=== PATIENT | male | born 1980 ===

== ENCOUNTER 2017-03-03 10:47 | Emergency (ER) | payer OTHER ==
[2017-03-03 11:03] VITALS: TEMP 98.2
--- NOTE | 2017-03-03 12:48 | C.PDOC ---
History Of Present Illness 36 y/o male presents to the ED for evaluation of neck and upper back pain for the last 2 days. 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 Notes his neck feels stiff. Pt also complaints of left foot 5th toe pain after dropping a block on it. Otherwise, denies any sensory changes , fever, chills, or any other associated symptoms at this time. Time Seen by Provider: 03/03/17 11:23 Chief Complaint (Nursing): Back Pain History Per: Patient History/Exam Limitations: no limitations Onset/Duration Of Symptoms: Days (2) Current Symptoms Are (Timing): Still Present Quality Of Discomfort: "Pain" Previous Symptoms: Neck Pain Associated Symptoms: None. denies: Incontinence, New Weakness, New Numbness Exacerbating Factor(s): Movement Recent travel outside of the [place]: No Additional History Per: Patient Past Medical History Reviewed: Historical Data, Nursing Documentation, Vital Signs Vital Signs: Last Vital Signs Temp 98.2 F 03/03/17 11:02 Pulse 64 03/03/17 13:02 Resp 15 03/03/17 13:02 BP 125/82 03/03/17 13:02 Pulse Ox 100 03/03/17 13:02 - Medical History PMH: No Chronic Diseases Family History: States: Unknown Family Hx - Social History Hx Alcohol Use: Yes Hx Substance Use: No Review Of Systems Except As Marked, All Systems Reviewed And Found Negative. Constitutional: Negative for: Fever, Chills Musculoskeletal: Positive for: Neck Pain, Back Pain (upper), Foot Pain (left) Neurological: Negative for: Weakness, Numbness Physical Exam - Physical Exam Appears: Non-toxic, No Acute Distress Skin: Normal Color, Warm, Dry Head: Atraumatic, Normacephalic Eye(s): bilateral: Normal Inspection Neck: Decreased ROM (decreased ROM with flexion to left side), No Midline Cervical Tenderness, Paracervical Tenderness ((+) spasm on left side) Chest: Symmetrical Cardiovascular: Rhythm Regular Respiratory: Normal Breath Sounds, No Wheezing Extremity: Normal ROM (FROM of left foot), Tenderness (mild tenderness to distal aspect of 4th and 5th digits of left foot), Capillary Refill (< 2 sec.), No Deformity, No Swelling Pulses: Left Dorsalis Pedis: Normal, Right Dorsalis Pedis: Normal Neurological/Psych: Oriented x3, Normal Speech, Normal Motor, Normal Sensation Gait: Steady ED Course And Treatment O2 Sat by Pulse Oximetry: 99 (RA) Pulse Ox Interpretation: Normal - Other Rad Left foot x-ray X-Ray: Interpreted by Me, Viewed By Me Interpretation: No acute fracture or dislocation. Medical Decision Making Medical Decision Making: Impression: 36 y/o male presents with neck stiffness, upper back pain, and left foot pain. Plan: * Valium * Toradol * Tylenol * Left foot x-ray * Reassess and disposition Progress note: Foot xray was negative for fx. On reassessment, patient is resting comfortably, with mild improvement of neck pain. Patient remains afebrile, with no bony tenderness. Patient is ambulatory in the emergency department with no signs of discomfort. Patient was advised to follow up with physician/clinic in 1-2 days. Disposition Counseled Patient/Family Regarding: Need For Followup, Rx Given - Disposition Referrals: Tim Pino [facility] [Outside] Disposition: HOME/ ROUTINE Disposition Time: 13:00 Condition: IMPROVED Additional Instructions: Vaya a sandoval mdico o la clnica en 2-5 dueñas sin falta, para mas evaluacin. Uehling los medicamentos leslie indicado. Volver a la nga de emergencia en cualquier momento si los sntomas persisten o empeoran. Prescriptions: Cyclobenzaprine [Cyclobenzaprine HCl] 10 mg PO TID #21 tab Ibuprofen [Motrin] 600 mg PO Q8 #30 tab Instructions: Cervical Strain (DC) Forms: [facility] (Dutch), Work Excuse Print Language: BRITISH - POA Present On Arrival: None - Clinical Impression Clinical Impression: Neck muscle spasm, Foot contusion - PA / LAN MANAGER / Resident Statement MD/DO has reviewed & agrees with the documentation as recorded. - Scribe Statement The provider has reviewed the documentation as recorded by the Khadijahibsharan Ignacio All medical record entries made by the Scribe were at my direction and personally dictated by me. I have reviewed the chart and agree that the record accurately reflects my personal performance of the history, physical exam, medical decision making, and the department course for this patient. I have also personally directed, reviewed, and agree with the discharge instructions and disposition.
[2017-03-03 13:03] VITALS: BP 125/82; PULSE 64; RESP 15
[2017-03-03 13:21] VITALS: O2SAT 99
--- NOTE | 2017-03-03 13:44 | RAD ---
PROCEDURE: Left Foot Radiographs. HISTORY: pain to 4th-5th toes s.p injury COMPARISON: None. FINDINGS: BONES: Normal bone alignment. No acute fracture. JOINTS: Normal. SOFT TISSUES: Normal. OTHER FINDINGS: None. IMPRESSION: No acute fracture or dislocation.
== END 2017-03-03 13:02 | disposition home or self-care (01) ==
LOC: C.ER 10:47
DX: M62.838 Other muscle spasm (principal); S90.32XA Contusion of left foot, initial encounter; W20.8XXA Other cause of strike by thrown, projected or falling object, initial encounter; Y99.0 Civilian activity done for income or pay
CPT/HCPCS: 73630; 96372; 99283; J1885